=== PATIENT | female | born 1960 ===

== ENCOUNTER 2017-09-04 02:19 | Emergency (ER) | payer MEDICAID ==
--- NOTE | 2017-09-04 02:59 | ED PDOC ---
Arrival/HPI - General Chief Complaint: Abdominal Pain Time Seen by Provider: 09/04/17 02:23 Historian: Patient - History of Present Illness Narrative History of Present Illness (Text): 09/04/17 02:55 56 year old female, whose past medical history includes gastritis, presents to the emergency department complaining of epigastric abdominal pain. Patient states the pain is now resolving. She states she was recently seen in [facility] [place] for similar complaints. Patient denies any fever, chills, chest pain, shortness of breath, nausea, vomiting, diarrhea, urinary symptoms, back pain, neck pain, headache, dizziness, or any other complaints. Symptom Onset: Sudden Symptom Course: Improving Activities at Onset: Light Context: Home Past Medical History - Provider Review Nursing Documentation Reviewed: Yes - Psychiatric Hx Substance Use: No Family/Social History - Physician Review Nursing Documentation Reviewed: Yes Family/Social History: No Known Family HX Smoking Status: n Hx Alcohol Use: No Hx Substance Use: No Allergies/Home Meds Allergies/Adverse Reactions: Allergies No Known Allergies Allergy (Verified 09/04/17 02:49) Review of Systems - Physician Review All systems were reviewed & negative as marked: Yes - Review of Systems Constitutional: absent: Fevers, Other (Chills) Respiratory: absent: SOB Cardiovascular: absent: Chest Pain Gastrointestinal: Abdominal Pain (Epigastric ). absent: Diarrhea, Nausea, Vomiting Genitourinary Female: absent: Dysuria, Frequency, Hematuria Musculoskeletal: absent: Back Pain, Neck Pain Neurological: absent: Headache, Dizziness Physical Exam Vital Signs Reviewed: Yes Vital Signs Temp Pulse Resp BP Pulse Ox 09/04/17 05:09 98.0 F 72 17 168/95 H 100 09/04/17 02:32 98.6 F 66 18 164/90 H 97 Temperature: Afebrile Blood Pressure: Hypertensive Pulse: Regular Respiratory Rate: Normal Appearance: Positive for: Well-Appearing, Non-Toxic, Comfortable Pain Distress: None Mental Status: Positive for: Alert and Oriented X 3 - Systems Exam Head: Present: Atraumatic, Normocephalic Pupils: Present: PERRL Extroacular Muscles: Present: EOMI Conjunctiva: Present: Normal Mouth: Present: Moist Mucous Membranes Neck: Present: Normal Range of Motion Respiratory/Chest: Present: Clear to Auscultation, Good Air Exchange. No: Respiratory Distress, Accessory Muscle Use Cardiovascular: Present: Regular Rate and Rhythm, Normal S1, S2. No: Murmurs Abdomen: Present: Tenderness (Epigastric tenderness). No: Distention, Peritoneal Signs, Rebound, Guarding Back: Present: Normal Inspection Upper Extremity: Present: Normal Inspection. No: Cyanosis, Edema Lower Extremity: Present: Normal Inspection. No: Edema Neurological: Present: GCS=15, CN II-XII Intact, Speech Normal Skin: Present: Warm, Dry, Normal Color. No: Rashes Psychiatric: Present: Alert, Oriented x 3, Normal Insight, Normal Concentration Medical Decision Making ED Course and Treatment: 09/04/17 03:00 Impression: 56 year old female presents complaining of epigastric pain that is now improving. Plan: -- EKG -- Labs -- Chest X-Ray -- Protonix Inj, IV Fluids -- Urinalysis -- CT ABD & Pelvis IV Contrast -- Reassess and disposition Progress Notes: EKG shows NSR at 70 BPM with Normal intervals. Normal EKG. Interpreted by me. 09/04/17 03:45 CXR Impression: As read by me, NAD EXAM: CT Abdomen and Pelvis With Intravenous Contrast Dictated and Authenticated by: Mikaela Fletcher MD 09/04/2017 4:41 AM IMPRESSION: No evidence of an acute intra-abdominal or pelvic abnormality. Nonobstructing right renal stone. Benign liver hemangioma. Liver cysts. Too small to characterize low-density liver lesions. No follow-up is necessary. 09/04/17 04:52 On reevaluation the patient feels better and is in no acute distress. I have discussed the results and plan with the patient, who expresses understanding. Patient given the opportunity to ask question, all questions were answered and there is agreement with the plan to discharge the patient home. Patient is stable for discharge. Patient was instructed to follow up with physician/clinic in 1-2 days or return if symptoms persist/worsen or new concerning symptoms arise. - Lab Interpretations Lab Results: 09/04/17 03:00 09/04/17 03:00 Lab Results 09/04/17 03:00: PT 11.1, INR 0.97, APTT 29.3 09/04/17 03:00: Sodium 144, Potassium 4.0, Chloride 106, Carbon Dioxide 25, Anion Gap 17, BUN 14, Creatinine 0.9, Est GFR ( Amer) > 60, Est GFR (Non- Af Amer) > 60, Random Glucose 105, Calcium 9.5, Total Bilirubin 0.2, AST 28, ALT 35, Alkaline Phosphatase 72, Lactate Dehydrogenase 473, Total Creatine Kinase 141, Troponin I < 0.01, Total Protein 7.5, Albumin 4.4, Globulin 3.1, Albumin/Globulin Ratio 1.4, Amylase 97, Lipase 236 09/04/17 03:00: WBC 10.5, RBC 4.32, Hgb 12.7, Hct 37.1, MCV 85.9, MCH 29.4, MCHC 34.2, RDW 13.5, Plt Count 338, MPV 10.0, Gran % 57.3, Lymph % (Auto) 31.3, [place] % (Auto) 9.0 H, Eos % (Auto) 2.1, Baso % (Auto) 0.3, Gran # 5.99, Lymph # ( Auto) 3.3, [place] # (Auto) 0.9 H, Eos # (Auto) 0.2, Baso # (Auto) 0.03 I have reviewed the lab results: Yes - RAD Interpretation Radiology Orders: 09/04/17 02:52 CHEST PORTABLE [RAD] Stat 09/04/17 03:30 ABD & PELVIS IV CONTRAST ONLY [CT] Stat - EKG Interpretation Interpreted by ED Physician: Yes Type: 12 lead EKG - Medication Orders Current Medication Orders: Discontinued Medications Al Hydrox/Mg Hydrox/Simethicone (Maalox Plus 30 Ml) 30 ml PO STAT STA Stop: 09/04/17 04:55 Last Admin: 09/04/17 05:08 Dose: 30 ml Belladonna/Phenobarbital ( Elixir) 5 ml PO STAT STA Stop: 09/04/17 04:55 Last Admin: 09/04/17 05:08 Dose: 5 miu Diphenhydramine HCl (Benadryl) 25 mg IVP ONCE ONE Stop: 09/04/17 04:15 Last Admin: 09/04/17 04:27 Dose: 25 mg IVP Administration Document 09/04/17 04:27 IT (Rec: 09/04/17 04:27 IT [id number]) Charges for Administration # of IVP Administrations 1 Sodium Chloride (Sodium Chloride 0.9%) 1,000 mls @ 80 mls/hr IV .[id number] Last Admin: 09/04/17 03:32 Dose: 80 mls/hr eMAR Start Stop Document 09/04/17 03:32 IT (Rec: 09/04/17 03:32 IT [id number]) Intravenous Solution Start Date 09/04/17 Start Time 03:32 Pantoprazole Sodium (Protonix Inj) 40 mg IVP ONCE STA Stop: 09/04/17 02:54 Last Admin: 09/04/17 03:32 Dose: 40 mg IVP Administration Document 09/04/17 03:32 IT (Rec: 09/04/17 03:32 IT [id number]) Charges for Administration # of IVP Administrations 1 - Scribe Statement The provider has reviewed the documentation as recorded by the Mark Bass Provider Scribe Attestation: All medical record entries made by the Scribe were at my direction and personally dictated by me. I have reviewed the chart and agree that the record accurately reflects my personal performance of the history, physical exam, medical decision making, and the department course for this patient. I have also personally directed, reviewed, and agree with the discharge instructions and disposition. Disposition/Present on Arrival - Present on Arrival Any Indicators Present on Arrival: No History of DVT/PE: No History of Uncontrolled Diabetes: No Urinary Catheter: No History of Decub. Ulcer: No History Surgical Site Infection Following: None - Disposition Have Diagnosis and Disposition been Completed?: Yes Diagnosis: Gastritis and duodenitis Disposition: HOME/ ROUTINE Disposition Time: 05:05 Condition: GOOD Discharge Instructions (ExitCare): Gastritis (DC) Referrals: PCP,NO [Primary Care Provider] - Follow up with primary Forms: [employer] (Albanian)
[2017-09-04] MEDS ORDERED: Sodium Chloride 0.9% 1,000 ML IV SCH (03:00)
[2017-09-04 03:10] LABS: BASO # 0.03 K/mm3 (0.0-2.0); BASO % 0.3 % (0.0-3.0); EOS # 0.2 (0.0-0.7); EOS % 2.1 % (1.5-5.0); GRAN # 5.99 (1.4-6.5); GRAN % 57.3 % (50.0-68.0); HEMOGLOBIN 12.7 g/dL (12.0-16.0); LYMPH # 3.3 (1.2-3.4); LYMPH % 31.3 % (22.0-35.0); MEAN CELL VOLUME 85.9 fl (80.0-105.0); MEAN CORPUSCULAR HEMOGLOBIN 29.4 pg (25.0-35.0); MEAN CORPUSCULAR HGB CONC 34.2 g/dl (31.0-37.0); MONO # 0.9 (0.1-0.6); RBC 4.32 10^6/uL (3.5-6.1); RED CELL DISTRIBUTION WIDTH 13.5 % (11.5-14.5); WHITE BLOOD COUNT 10.5 10^3/ul (4.5-11.0)
[2017-09-04 03:20] LABS: ALB/GLOB RATIO 1.4 (1.1-1.8); ALBUMIN 4.4 g/dL (3.0-4.8); ALT/SGPT 35 U/L (7-56); AMYLASE 97 U/L (35-125); AST/SGOT 28 U/L (14-36); BLOOD UREA NITROGEN 14 mg/dL (7-21); CALCIUM 9.5 mg/dL (8.4-10.5); GFR AFRICAN-AMERICAN > 60; GFR NON-AFRICAN AMERICAN > 60; LIPASE 236 U/L (23-300)
[2017-09-04 03:23] LABS: INR 0.97 (0.93-1.08); PARTIAL THROMBOPLASTIN TIME 29.3 Seconds (25.1-36.5); PROTHROMBIN TIME 11.1 SECONDS (9.4-12.5)
[2017-09-04 03:29] LABS: TROPONIN I < 0.01 ng/mL
[2017-09-04] MEDS ORDERED: Iohexol 350 MG/100 ML VIAL ONE (03:35)
[2017-09-04] MEDS ORDERED: DiphenhydrAMINE 50 mg/ml Inj IVP ONE (04:14)
--- NOTE | 2017-09-04 04:41 | CT ---
EXAM: CT Abdomen and Pelvis With Intravenous Contrast CLINICAL HISTORY: 56 years old, female; Pain; Abdominal pain; Localized; Right upper quadrant (ruq); Additional info: Abd pain TECHNIQUE: Axial computed tomography images of the abdomen and pelvis with intravenous contrast. All CT scans at this facility use one or more dose reduction techniques, viz.: automated exposure control; ma/kV adjustment per patient size (including targeted exams where dose is matched to indication; i.e. head); or iterative reconstruction technique. Coronal and sagittal reformatted images were created and reviewed. CONTRAST: 100 mL of omnipaque 350 administered intravenously. COMPARISON: No relevant prior studies available. FINDINGS: Lung bases: Unremarkable. No mass. No consolidation. ABDOMEN: Liver: There is an irregular hepatic hypodensity, consistent in appearance with a benign hemangioma. There are simple hepatic cysts. The largest measures 2.7 x 2 x 2.3 cm in the dome of the liver. Multiple too small to characterize low-density liver lesions measuring to 5 mm. Gallbladder and bile ducts: Unremarkable. No calcified stones. No ductal dilation. Pancreas: Unremarkable. No mass. No ductal dilation. Spleen: Unremarkable. No splenomegaly. Adrenals: Unremarkable. No mass. Kidneys and ureters: Extrarenal pelvis bilaterally. There is a right renal collecting system calcification. No hydronephrosis. Stomach and bowel: There is no wall thickening or pericolonic stranding to suggest colitis. Mildly distended gas-filled loops of small and large bowel. No obstruction. PELVIS: Appendix: No findings to suggest acute appendicitis. Normal appendix. Bladder: Unremarkable. No mass. Reproductive: Unremarkable as visualized. ABDOMEN and PELVIS: Intraperitoneal space: Unremarkable. No free air. No significant fluid collection. Bones/joints: No acute fracture. No dislocation. Soft tissues: Unremarkable. Vasculature: There are numerous benign phleboliths in the pelvis. No abdominal aortic aneurysm. Lymph nodes: Unremarkable. No enlarged lymph nodes. IMPRESSION: No evidence of an acute intra-abdominal or pelvic abnormality. Nonobstructing right renal stone. Benign liver hemangioma. Liver cysts. Too small to characterize low-density liver lesions. No follow-up is necessary.
[2017-09-04] MEDS ORDERED: Alum-Mag Hydrox-Simethicone Susp (30 mL) PO STA (04:54)
[2017-09-04] MEDS ORDERED: Atrop/Hyosc/Scopal/PB Elixir (120 ml) PO STA (04:54)
[2017-09-04 05:10] VITALS: BP 168/95; PULSE 72; RESP 17; TEMP 98; O2SAT 100
--- NOTE | 2017-09-04 09:17 | RAD ---
HISTORY: weak COMPARISON: No prior. FINDINGS: LUNGS: No active pulmonary disease. PLEURA: No significant pleural effusion identified, no pneumothorax apparent. CARDIOVASCULAR: No radiographic findings to suggest acute or significant cardiovascular disease. OSSEOUS STRUCTURES: No significant abnormalities. VISUALIZED UPPER ABDOMEN: Normal. OTHER FINDINGS: None. IMPRESSION: No active disease.
--- NOTE | 2017-09-04 13:07 | CARD ---
APPROVED REPORT EKG Measurement Heart [id number] CO [id number] <Conclusion> Normal sinus rhythm Normal ECG
== END 2017-09-04 05:10 | disposition home or self-care (01) ==
LOC: MERGE 02:19 → ED 02:19
DX: K29.70 Gastritis, unspecified, without bleeding (principal); K29.80 Duodenitis without bleeding
CPT/HCPCS: 71045; 74177; 80053; 82150; 82550; 83615; 83690; 84484; 85025; 85610; 85730; 93005; 96374; 96375; 99283; C9113; J1200; J7040; Q9967